=== PATIENT | female | born 1955 | race Caucasian/White ===

== ENCOUNTER 2018-06-03 10:01 | Emergency (ER) | payer OTHER ==
[2018-06-03 11:49] LABS: URINE BLOOD (Dip) POC Negative (NEGATIVE); URINE GLUCOSE (Dip) POC Negative (NEGATIVE); URINE KETONES (Dip) POC Negative (NEGATIVE); URINE LEUKOCYTE EST (Dip) POC Negative (NEGATIVE); URINE NITRITE (Dip) POC Negative (NEGATIVE); URINE TOTAL PROTEIN POC Negative (NEGATIVE)
[2018-06-03] MEDS: KETOROLAC 30 MG INJ IM (12:12)
== END 2018-06-03 12:50 | disposition home or self-care (01) ==
LOC: FTE 10:01
DX: M79.661 Pain in right lower leg (principal); E11.9 Type 2 diabetes mellitus without complications; Z79.4 Long term (current) use of insulin; Z79.82 Long term (current) use of aspirin
CPT/HCPCS: 73510; 81003; 96372; 99284-25

== ENCOUNTER 2018-06-23 05:48 | Day surgery (SDC) | payer OTHER ==
[2018-06-23] MEDS ORDERED: BALANCED SALT SOLN OPH IRRIG 500 ML, EPINEPHrine 0.1 MG, GENTAMICIN 4 MG, VANCOMYCIN 10 MG IRR (06:00)
[2018-06-23] MEDS ORDERED: LIDOCAINE 4% (MPF) 5 ML INJ INJ (06:00)
[2018-06-23] MEDS ORDERED: VANCOMYCIN 1 GM INJ (06:47)
[2018-06-23] MEDS ORDERED: EPINEPHrine 1 MG INJ (06:48)
[2018-06-23] MEDS ORDERED: TOBRAMYCIN/DEXAMETH 3.5 GM OPH OINT (06:48)
[2018-06-23] MEDS ORDERED: TETRACAINE 0.5% 4 ML OPH (06:48)
[2018-06-23] MEDS ORDERED: GENTAMICIN 80 MG INJ (06:48)
[2018-06-23] MEDS: TROPICAMIDE 1% 3 ML OPH OPER (07:01)
[2018-06-23] MEDS: TETRACAINE 0.5% 4 ML OPH OPER ×2 (07:02→08:11)
[2018-06-23] MEDS: PHENYLephrine 2.5% 15 ML OPH OPER (07:29)
[2018-06-23] MEDS ORDERED: OXYCODONE/ACETAMINOPHEN (5/325) TAB PO (07:30)
[2018-06-23] MEDS ORDERED: PROCHLORPERAZINE 10 MG INJ IV (07:30)
[2018-06-23] MEDS ORDERED: FENTAnyl 50 MCG/ML VIAL IV (07:30)
[2018-06-23] MEDS ORDERED: DIPHENHYDRAMINE 50 MG INJ IV (07:30)
[2018-06-23] MEDS ORDERED: MEPERIDINE 25 MG INJ IV (07:30)
[2018-06-23] MEDS ORDERED: hydrALAzine 20 MG INJ IV (07:30)
[2018-06-23] MEDS ORDERED: HYDROmorphONE 1 MG/5 ML IV SYRINGE IV (07:30)
[2018-06-23] MEDS ORDERED: ONDANSETRON 4 MG INJ IV (07:30)
[2018-06-23] MEDS ORDERED: TOBRAMYCIN/DEXAMETH 2.5 ML OPH (07:36)
[2018-06-23] MEDS ORDERED: FENTAnyl 50 MCG/ML VIAL (07:46)
[2018-06-23] MEDS ORDERED: MIDAZOLAM 1 MG/ML 2 ML INJ (07:46)
[2018-06-23] MEDS ORDERED: TRYPAN BLUE 0.5 ML SYG IO (08:00)
[2018-06-23] MEDS ORDERED: PROPOFOL 20 ML (08:04)
[2018-06-23] MEDS: LIDOCAINE 4% (MPF) 5 ML INJ (08:10)
[2018-06-23] MEDS: LABETALOL HCL 20MG INJ IV (08:58)
== END 2018-06-23 10:45 | disposition home or self-care (01) ==
LOC: SDS 05:48
DX: H26.8 Other specified cataract (principal); Z96.1 Presence of intraocular lens; E11.9 Type 2 diabetes mellitus without complications; I10 Essential (primary) hypertension
CPT/HCPCS: 66984; 82962